=== PATIENT | female | born 1995 | race Caucasian/White ===

== ENCOUNTER 2023-02-14 20:16 | Emergency (ER) | payer MEDICAID, SELFPAY ==
[2023-02-14 20:24] VITALS: BP 124/82; PULSE 67; RESP 16; TEMP 36.8; O2SAT 99; BMI 19.6
--- NOTE | 2023-02-14 20:36 | ED_ITS ---
HPI - General Chief complaint: Urogenital-Female Stated complaint: ABDOMINAL PAIN Time Seen by Provider: 02/14/23 20:19 Source: patient Mode of arrival: walk-in Limitations: no limitations History of Present Illness HPI Narrative: patient is a 27-year-old female who presents the emergency department for an increase in pelvic cramping and heavy vaginal bleeding with passage of clots. She was referred in by the on-call [employer], she had a Mirena placed with her [employer] DRAFT[employer]ERSON in the office 2-3 weeks ago. She has had no objective fevers but states she has been nauseous and has had diffuse pelvic cramping with heavy vaginal bleeding and passage of clots over the last several days, no urinary symptoms. No flank or back pain. She took Motrin approximately six hours ago without improvement. Related Data Home Medications Medication Instructions Recorded Confirmed amoxicillin 500 mg capsule 500 mg PO Q12H 02/14/23 02/14/23 levothyroxine 50 mcg tablet 50 mcg PO DAILY 02/14/23 02/14/23 Previous Rx's Medication Instructions Recorded ketorolac 10 mg tablet 10 mg PO TID PRN pain #10 tabs 02/14/23 ondansetron 4 mg disintegrating 4 mg PO Q6H PRN nausea and 02/14/23 tablet vomiting #12 tabs Allergies Allergy/AdvReac Type Severity Reaction Status Date / Time No Known Drug Allergies Allergy Verified 02/14/23 20:27 Review of Systems ROS Constitutional Denies: fever or chills Ears, nose, mouth, and throat Denies: throat pain or neck pain Cardiovascular Denies: chest pain Respiratory Denies: shortness of breath or cough Gastrointestinal Reports: abdominal pain and nausea; Denies: vomiting Genitourinary Denies: painful urination Musculoskeletal Denies: back pain Integumentary/Breast Denies: rash Neurological Denies: headache PFSH PFSH Social History Smoking status: Never smoker Exam Narrative Exam Narrative: Gen.: Awake, alert, in no distress Head: Normocephalic, atraumatic ENT: Moist mucous membranes Respiratory: No respiratory distress Gastrointestinal: Abdomen is soft, nondistended and diffuse tenderness palpation with no point tenderness, guarding or rebound Extremities: Moves extremities equally Psych: Normal mood and affect Neuro: No focal neuro deficit Skin: Warm, dry, intact Constitutional Vital Signs, click to edit/add: Last Vital Signs Temp 98.2 F 02/14/23 20:24 Pulse 67 02/14/23 20:24 Resp 16 02/14/23 20:24 BP 124/82 H 02/14/23 20:24 Pulse Ox 99 02/14/23 20:24 O2 Del Method Room Air 02/14/23 20:24 Course Vital Signs Vital signs: Vital Signs Temperature 98.2 F 02/14/23 20:24 Pulse Rate 67 02/14/23 20:24 Respiratory Rate 16 02/14/23 20:24 Blood Pressure 124/82 H 02/14/23 20:24 Pulse Oximetry 99 02/14/23 20:24 Oxygen Delivery Method Room Air 02/14/23 20:24 Temperature 98.2 F 02/14/23 20:24 Pulse Rate 67 02/14/23 20:24 Respiratory Rate 16 02/14/23 20:24 Blood Pressure 124/82 H 02/14/23 20:24 Pulse Oximetry 99 02/14/23 20:24 Oxygen Delivery Method Room Air 02/14/23 20:24 MDM - OB/Uterine Contractions MDM Narrative Medical decision making narrative: patient refused Toradol and Zofran in the emergency department. Her abdomen is soft and benign, no pain out of proportion in the Emergency Room with stable vital signs. test is negative, urine specimen with no evidence of significant blood or infection. Lab studies show the patient has no bleeding dysfunction and no anemia. She was given education and reassurance, she was given an order for an outpatient ultrasound as we do not have this available in the emergency department tonight. She should follow closely with her [employer]ERSON. She was given NSAIDs and Zofran for home, she was agreeable to pain medication given to go from the Emergency Room. Return to the Emergency Room if symptoms change or worsen. Medical Records Attestation: I reviewed the patient's medical records. Lab Data Attestation: I reviewed the patient's lab results. Labs: Lab Results 02/14/23 02/14/23 Range/Units 20:45 20:48 WBC 10.6 (4.0-11.0) 10^3/uL RBC 4.43 (4.20-5.40) 10^6/uL Hgb 12.3 (12.0-16.0) g/dL Hct 38.1 (36.0-48.0) % MCV 86.0 (81.0-99.0) fL MCH 27.8 (26.7-34.0) pg MCHC 32.3 (29.9-35.2) g/dL RDW 13.2 (11.0-15.0) % Plt Count 329 (150-450) 10^3/uL MPV 9.4 L (9.5-13.5) fL Neut % (Auto) 55.8 (43.0-75.0) % Lymph % (Auto) 32.1 (20.5-60.0) % Piatt % (Auto) 8.8 (1.7-12.0) % Eos % (Auto) 2.6 (0.9-7.0) % Baso % (Auto) 0.3 (0.2-2.0) % Neut # (Auto) 5.9 (1.4-6.5) 10^3/uL Lymph # (Auto) 3.4 (1.2-3.8) 10^3/uL Piatt # (Auto) 0.9 H (0.3-0.8) 10^3/uL Eos # (Auto) 0.3 (0.0-0.7) 10^3/uL Baso # (Auto) 0.0 (0.0-0.1) 10^3/uL Abs Immat Gran (auto) 0.04 H (0.00-0.03) 10^3/uL Imm/Tot Granulo (auto) 0.4 (0.0-0.5) % PT 9.8 (9.0-11.6) sec INR <0.93 Urine Color Lt. yellow (YELLOW) Urine Clarity Clear (CLEAR) Urine pH 6.0 (5.0-9.0) Ur Specific [place] 1.025 (1.005-1.025) Urine Protein Negative (NEG/TRACE) mg/dL Urine Glucose (UA) Negative (NEGATIVE) mg/dL Urine Ketones Negative (NEGATIVE) mg/dL Urine Occult Blood Trace-i (NEGATIVE) Urine Nitrite Negative (NEGATIVE) Urine Bilirubin Negative (NEGATIVE) Urine Urobilinogen 0.2 (0.2-1.0) EU/dL Ur Leukocyte Esterase Negative (NEGATIVE) Urine RBC 0-2 (0-2) #/HPF Urine WBC None seen (NONE SEEN) #/HPF Ur Squamous Epith Cells Rare (NONE/RARE) #/LPF Urine Crystals None seen (None Seen) #/HPF Urine Bacteria None seen (NONE SEEN) #/HPF Urine Casts None seen (NONE SEEN) #/LPF Urine Mucus None seen (NONE SEEN) Ur Culture Indicated? No Discharge Plan Discharge Chief Complaint: Urogenital-Female Clinical Impression: Dysfunctional uterine bleeding, Pelvic pain Patient Disposition: Home, Self-Care Time of Disposition Decision: 21:40 Condition: Good Mode of Transportation: Private Vehicle Prescriptions / Home Meds: New ketorolac 10 mg tablet 10 mg PO TID PRN (Reason: pain) Qty: 10 0RF ondansetron 4 mg tablet,disintegrating 4 mg PO Q6H PRN (Reason: nausea and vomiting) Qty: 12 0RF No Action levothyroxine 50 mcg tablet 50 mcg PO DAILY amoxicillin 500 mg capsule 500 mg PO Q12H Instructions: Abnormal (Dysfunctional) Uterine Bleeding (ED) Additional Instructions: Follow up with Dr. Jefferson's office after you have your ultrasound Stand Alone Forms: Portal Instructions Referrals: Physician,Non-Staff, [Primary Care Provider] - 1 week Discharge Date/Time: 02/14/23 22:07
[2023-02-14 20:57] LABS: Basophils Percent Auto 0.3 % (0.2-2.0); Eosinophils Absolute Auto 0.3 10^3/uL (0.0-0.7); Eosinophils Percent Auto 2.6 % (0.9-7.0); Hematocrit 38.1 % (36.0-48.0); Hemoglobin 12.3 g/dL (12.0-16.0); Immature Granulocytes Abs Auto 0.04 10^3/uL (0.00-0.03); Immature Granulocytes Pct Auto 0.4 % (0.0-0.5); Lymphocytes Absolute Auto 3.4 10^3/uL (1.2-3.8); Lymphocytes Percent Auto 32.1 % (20.5-60.0); Mean Corpuscular HGB Conc 32.3 g/dL (29.9-35.2); Mean Corpuscular Hemoglobin 27.8 pg (26.7-34.0); Mean Platelet Volume 9.4 fL (9.5-13.5); Monocytes Absolute Auto 0.9 10^3/uL (0.3-0.8); Monocytes Percent Auto 8.8 % (1.7-12.0); Neutrophils Absolute Auto 5.9 10^3/uL (1.4-6.5); Neutrophils Percent Auto 55.8 % (43.0-75.0); Platelet Count 329 10^3/uL (150-450); Red Blood Count 4.43 10^6/uL (4.20-5.40); Red Cell Distribution Width 13.2 % (11.0-15.0); White Blood Count 10.6 10^3/uL (4.0-11.0)
--- NOTE | 2023-02-14 20:58 | PC.NURSE ---
patient refused toradol. states she doesnt take any pain medication bc it makes her sick. patient also stated she was seen at [facility] this morning and they just wanted to give her pain meds. patient states she wants to know why she is in pain not just have the pain medicaided. PA aware
[2023-02-14 20:59] LABS: Bilirubin Urine NEGATIVE (NEGATIVE); Blood Urine TRACE-I (NEGATIVE); Clarity Urine CLEAR (CLEAR); Color Urine LT. YELLOW (YELLOW); Glucose Urine UA NEGATIVE (NEGATIVE); Ketones Urine NEGATIVE (NEGATIVE); Leukocyte Esterase Urine NEGATIVE (NEGATIVE); Nitrite Urine NEGATIVE (NEGATIVE); Protein Urine NEGATIVE (NEG/TRACE); Specific Gravity Urine 1.025 (1.005-1.025); Urobilinogen Urine 0.2 EU/dL (0.2-1.0)
[2023-02-14 21:00] LABS: Urine Microscopic Indicated YES
[2023-02-14 21:07] LABS: Bacteria Urine NONE SEEN #/HPF (NONE SEEN); Mucus Urine NONE SEEN (NONE SEEN); RBC Urine 0-2 #/HPF (0-2); Squamous Epithelial Cell Urine RARE #/LPF (NONE/RARE); WBC Urine NONE SEEN #/HPF (NONE SEEN)
[2023-02-14 21:08] LABS: Cast Seen? NONE SEEN #/LPF (NONE SEEN); Crystals Seen? None Seen #/HPF (None Seen); Urine Culture Indicated NO
[2023-02-14 21:12] LABS: Prothrombin Time 9.8 sec (9.0-11.6)
[2023-02-14 21:14] LABS: INR <0.93
[2023-02-14 21:29] LABS: HCG Qualitative Urine* NEGATIVE (NEGATIVE)
[2023-02-14] MEDS: ONDANSETRON 4 MG RAPDIS TABLET SL (21:58)
[2023-02-14] MEDS: KETOROLAC TROMETHAMINE 10 MG TABLET PO (21:58)
[2023-02-14] MEDS: HYDROCODONE/ACETAMINOPHEN 5-325 MG TABLET 1 TAB PO (21:58)
== END 2023-02-14 22:07 | disposition home or self-care (01) ==
PROVIDERS: Physician Assistant; Emergency Provider Emergency Medicine
DX: N93.8 Other specified abnormal uterine and vaginal bleeding (principal); R10.2 Pelvic and perineal pain; Z79.890 Hormone replacement therapy; Z97.5 Presence of (intrauterine) contraceptive device
CPT/HCPCS: 36415; 81003; 81015; 84703; 85025; 85610; 99284